=== PATIENT | female | born 1990 | race Caucasian/White ===

== ENCOUNTER 2018-03-12 16:31 | Emergency (ER) | payer OTHER ==
[~2018-03-12] VITALS: Ht 162.6 cm; Wt 59.0 kg
[2018-03-12 16:31] VITALS: Ht 162.6 cm; Wt 59.0 kg
[2018-03-12 17:08] LABS: BASOPHIL % 0.3 % (0-2); RED CELL DISTRIBUTION WIDTH 12.3 % (11.5-14.5)
[2018-03-12 17:12] LABS: PLATELET COUNT 421 x10^3mcL (130-400)
[2018-03-12 17:15] LABS: CALCIUM 9.1 mg/dL (8.5-10.1); CARBON DIOXIDE 28.5 mmol/L (21-32); CHLORIDE SERUM 98 mmol/L (98-107); CREATININE SERUM 0.7 mg/dL (0.6-1.0); GFR1 > 60 mL/min; GLUCOSE SERUM 118 mg/dL (74-106); POTASSIUM SERUM 3.7 mmol/L (3.5-5.1); SODIUM SERUM 137 mmol/L (136-145)
[2018-03-12 17:19] LABS: ALKALINE PHOSPHATASE 124 U/L (46-116); ALT/SGPT 27 U/L (14-59); AST/SGOT 23 U/L (15-37); BILIRUBIN TOTAL 0.51 mg/dL (0.20-1.00); TOTAL PROTEIN, SERUM 8.1 g/dL (6.4-8.2)
[2018-03-12 17:27] LABS: ALBUMIN 2.9 g/dL (3.4-5.0)
[2018-03-12 23:12] VITALS: BP 116/75
== END 2018-03-12 23:12 | disposition short-term general hospital (02) ==
LOC: ED 16:31
PROVIDERS: Emergency Medicine
DX: I26.99 Other pulmonary embolism without acute cor pulmonale (principal); I82.413 Acute embolism and thrombosis of femoral vein, bilateral
CPT/HCPCS: 83880; 85378; J1644; J2270; J2405; J3010; J7030; Q0092; Q9967